=== PATIENT | male | born 1975 | race African-American/Black ===

== ENCOUNTER 2018-09-28 16:54 | Emergency (ER) | payer OTHER ==
[~2018-09-28] VITALS: Ht 182.9 cm; Wt 95.3 kg
[2018-09-28 17:00] VITALS: BP_SYST 153
[2018-09-28 17:32] VITALS: BP_SYST 141
== END 2018-09-28 17:32 | disposition home or self-care (01) ==
LOC: SED 16:54
DX: K13.0 Diseases of lips (principal); R03.0 Elevated blood-pressure reading, without diagnosis of hypertension
CPT/HCPCS: 99283